=== PATIENT | female | born 1980 | race Two or more races ===

== ENCOUNTER 2024-11-22 19:43 | Emergency (ER) | payer MEDICAID, SELFPAY ==
[2024-11-22 19:44] VITALS: BMI 28.1
[2024-11-22 19:52] VITALS: BP 121/81; PULSE 99; RESP 18; TEMP 36.6; O2SAT 97
--- NOTE | 2024-11-22 19:57 | EDNOTE_ITS ---
ED Allergic Reaction RME/HPI General Chief complaint: Allergic Reaction Stated complaint: ALLEGYS / ITCHING THROAT / SWELLING AND WATERY EYE Time Seen by Provider: 11/22/24 19:45 Arrival date/time: 11/22/24 19:43 44 year old female present to emergency room with c/o season allergies worsen 1 week. pt report typical have them yearly but wasnt able to make an appointment with PCP. pt report zrytec d and flonase normally helps but does not have prescription. SEVERITY: Symptoms are described as being severe with limitations on activities of daily living CONTEXT: The patient is unable to identify any inciting events. DURATION/TIMING: The symptoms started approximately 7 days ASSOCIATED SYMPTOMS: The patient is unable to identify any other associated symptoms. MODIFYING FACTORS: The patient is unable to identify any alleviating or aggravating symptoms. PERTINENT ROS: no fevers, no chest pain/shortness of breath no nausea,vomiting, diarrhea, no dizziness/headache no rash no loc/syncope episode dsyuria,urgency,frequency REVIEW OF SYSTEMS: See History of Present Illness - with the exception of those mentioned in the history of present illness, all other systems reviewed and reported as negative GENERAL: In general the patient is awake, interactive, in an emergency department gurney. HEAD/EYES/EARS/NOSE/THROAT: normo-cephalic, atraumatic, mucus membranes are moist, anicteric, palpebral conjunctiva is pink, trachea is midline. CARDIOVASCULAR: regular rate and regular rhythm, no murmurs, heart sounds are not distant, strong pulses in all four extremities that are equal and symmetric bilateral upper and lower extremities, normal capillary refill. CHEST/PULMONARY: normal chest rise and fall, good air movement, clear to auscultation bilaterally, normal inspiratory to expiratory ratios without evidence of respiratory distress. NECK: No midline/Paraspinal tenderness, no step off ROM/Strenght intact No Kernig and bruzinski sign. No trauma ABDOMEN: soft, not tender, no masses appreciated BACK: normal range of motion without pain. NEUROLOGICAL: cranio-facial features are symmetric, moves all four extremities equally without obvious limitations or weakness. EXTREMITY: no tenderness to palpation over the long bones or large joints of the bilateral upper and lower extremities, no joint swelling, no joint erythema, no signs of trauma, no unilateral leg swelling and no peripheral edema. SKIN: warm, dry, well-perfused, no jaundice, no rash, no telangiectasias or petechia. PSYCH: calm, cooperative, no evidence of psychosis or agitation Related Data Home Medications ?Medication ?Instructions ?Recorded ?Confirmed glipizide 5 mg tablet 5 mg PO ACBR #0 tabs 7 lovastatin 10 mg tablet 10 mg PO HS ##0 10/29/16 metformin 1,000 mg tablet 1,000 mg PO BID #0 tabs 10/10 08/27 (Glucophage) Previous Rx's ?Medication ?Instructions ?Recorded omeprazole 20 mg capsule,delayed 20 mg PO QDAY ##30 release cetirizine 5 mg-pseudoephedrine ER 1 tab PO Q12H PRN a llergy symptoms 11/22/24 120 mg tablet,extended #60 tabs release,12hr (Zyrtec-D) fluticasone propionate 50 1 spray intranasal QDAY #16 grams 11/22/24 mcg/actuation nasal spray,suspension (Flonase Allergy Relief) Allergies Allergy/AdvReac Type Severity Reaction Status Date / Time No Known Allergies Allergy Unverified 11/22/24 19:56 Course Course Course Narrative: Presentation consistent with allergic rhinitis/allergies. No evidence of sasha terial infections including pneumonia, meningitis, pharyngitis. While in ED patient was provided with claritin/sudafed.? Patient provided prescription for zytec d and flonase? ?Patient is to followup with primary physician if has continued symptoms. Patient was advised to return to the ER if concern for uncontrolled fever, dehydration, or other concerns. Plan:? Discharge from ED zrytec d? Fluticasone?mcg/actuation nasal spray,?sprays/nostril bid prn. Advised Pt on supportive therapies, including decreasing exposure to possible allergens, using a dehumidifier, use of hypoallergenic mattresses and hygiene products, advancement of fluids as tolerated, and nasal saline sprays. Instructed Pt to f/up w/ PCP or ETC should symptoms worsen or not improve. Pt verbally expressed understanding and all questions were addressed to Pt's satisfaction. Quality Measures none Orders Category Date Time Status Pseudoephedrine [Sudafed] Med 11/22/24 19:55 Discontinued 30 mg PO X1 ONE lorataDINE [Claritin] Med 11/22/24 19:55 Discontinued 10 mg PO X1 ONE Vital Signs Vital signs: Vital Signs Temperature 97.9 F 11/22/24 19:52 Pulse Rate 99 11/22/24 19:52 Respiratory Rate 18 11/22/24 19:52 Blood Pressure 121/81 11/22/24 19:52 Pulse Oximetry (%) 97 11/22/24 19:52 Oxygen Delivery Method Room Air 11/22/24 19:52 Allergic Reaction Patient data External records reviewed:: [facility] previous records Clinical information provided by:: patient Social determinants that could affect healthcare access:: none Patient has the following chronic illnesses:: season allergies How is presenting disease/condition affected by chronic disease/condition?: exacerbated by Evaluation data The following diagnostics were reviewed and interpreted by me:: other (specify) (n/a ) Lab and/or radiology exams considered but not ordered:: n/a Interpretation Summary: n/a Medications / Prescriptions Medications or Prescriptions considered but not ordered:: n/a Medication administrations:: Medication Administration History Discontinued Medications Loratadine (Loratadine 10 Mg Tablet) 10 mg PO X1 ONE Stop: 11/22/24 19:56 Pseudoephedrine HCl (Pseudoephedrine 30 Mg Tablet) 30 mg PO X1 ONE Stop: 11/22/24 19:56 as stated above Consultations Consultation(s) initiated? (list below): No Diagnosis Most likely diagnosis given after review of the tests above:: season allergies Admission Indicated Admission indicated?: not indicated Admission Request Was there a request for admission?: No Disposition Plan Disposition Plan: Discharge Discharge Attestation Discharge Attestation: The patient and all family members were given an opportunity to ask questions and understood the discharge instructions. Discharge instructions specifically effects, indications for sooner follow up or return to the emergency department, and the expected course of current diagnosis. Patient condition: Stable Discharge Plan Plan Patient Disposition: HOME (Self Care) Prescriptions/Referrals Prescriptions/Med Rec: New fluticasone propionate [Flonase Allergy Relief] 50 mcg/actuation spray,suspension 1 spray intranasal QDAY Qty: 16 2RF Rx Instructions: administer into each nostril cetirizine-pseudoephedrine [Zyrtec-D] 5-120 mg tablet extended release 12 hr 1 tab PO Q12H PRN (Reason: allergy symptoms) Qty: 60 1RF No Action metformin [Glucophage] 1,000 MG tablet 1,000 mg PO BID Qty: 0 glipizide 5 MG tablet 5 mg PO ACBR Qty: 0 lovastatin 10 MG tablet 10 mg PO HS Qty: 0 omeprazole 20 MG capsule,delayed release(DR/EC) 20 mg PO QDAY Qty: 30 0RF Referrals: Temporary Provider,ED [Primary Care Provider] - In 1 week Problem List Clinical Impression: Acute seasonal allergic rhinitis Patient/Caregiver Discharge Instructions Education Materials: ED Allergy Seasonal ([place]) Print Language: [place]ian Stand Alone Forms: Nikki Award Info., Patient Portal Info Letter
[2024-11-22] MEDS: lorataDINE 10 MG TABLET PO (20:24)
[2024-11-22] MEDS: PSEUDOEPHEDRINE 30 MG TABLET PO (21:09)
== END 2024-11-22 21:11 | disposition home or self-care (01) ==
LOC: SERX 21:17
PROVIDERS: Emergency Provider Emergency Medicine; PCP Family Medicine
DX: J30.2 Other seasonal allergic rhinitis (principal)
CPT/HCPCS: 99282; A9270